=== PATIENT | male | born 2005 | race Hispanic/Latino ===

== ENCOUNTER 2024-10-23 23:01 | Emergency (ER) | payer SELFPAY ==
[2024-10-23] MEDS ORDERED: Ketorolac Tromethamine 30 MG (1 mL) VIAL ONE (23:18)
[2024-10-23] MEDS ORDERED: Dexamethasone 10 MG/ML VIAL ONE (23:18)
[2024-10-23] MEDS ORDERED: Cyclobenzaprine 10 MG TAB ONE (23:19)
[2024-10-23] MEDS ORDERED: Acetaminophen 325 MG TAB ONE (23:19)
== END 2024-10-24 00:57 | disposition home or self-care (01) ==
LOC: CSHERS 23:01
DX: M54.50 Low back pain, unspecified (principal); W09.8XXA Fall on or from other playground equipment, initial encounter; Y93.89 Activity, other specified
CPT/HCPCS: 96372; 99283; J1100; J1885